=== PATIENT | male | born 1965 | race African-American/Black ===

== ENCOUNTER 2023-09-23 07:19 | Emergency (ER) | payer OTHER, SELFPAY ==
[2023-09-23 07:22] VITALS: BP 142/71; PULSE 86; RESP 16; TEMP 36.1; O2SAT 98; BMI 22.3
--- NOTE | 2023-09-23 07:51 | ED.WOUNDLAC ---
HPI - Wound/Laceration General Chief Complaint: Wound/Laceration Stated Complaint: work injury / cut finger Time Seen by Provider: 09/23/23 07:25 Source: patient Mode of arrival: ambulatory Limitations: no limitations History of Present Illness HPI narrative: Cut left 2nd digit volar surface on sharp machinery at work, he is not up to date with his tetanous Onset (ago): minute(s) Related Data Allergies Allergy/AdvReac Type Severity Reaction Status Date / Time No Known Allergies Allergy Verified 09/23/23 07:22 Review of Systems Review of Systems: Yes all other systems are reviewed and are negative Neurologic: Denies Sensory deficit (Neuro) [facility] Social History Social History Advance Directives: No Physical Exam Vital Signs: Vital Signs: Last Vital Signs Temp 97 F 09/23/23 07:22 Pulse 86 09/23/23 07:22 Resp 16 09/23/23 07:22 BP 142/71 H 09/23/23 07:22 Pulse Ox 98 09/23/23 07:22 O2 Del Method Room Air 09/23/23 07:22 BMI result Body Mass Index 22.3 Const: General: healthy appearing Nutritional Appearance: average body habitus Orientation/consciousness: oriented to person and patient oriented x3 Limitations: no limitations HEENT: Head: Yes normal to inspection Ears: external ears normal General nose exam: Normal external nose present Mouth: Normal oral and palatal mucosa present and oropharynx normal Throat: Yes posterior oropharynx normal Eyes: General: appearance normal, both eyes and all related structures Neck: Other: supple Neck: Yes normal visual inspection Skin: Other: 2nd digit volar surface 4cm laceration distal to PIP not over the joint Neuro: General: oriented to person and patient oriented x3 Cranial nerves: Yes CN's II-XII intact bilaterally Motor exam (neuro): 5/5 motor strength present throughout Sensory Exam: No Sensory deficit (Neuro) Extrem: General: Yes normal to inspection Psych: Appearance: grossly normal Course Reevaluation(s) Reevaluation #1: patient tolerated procedure well Time: 08:41 Medical Decision Making Differential Diagnosis Differential Diagnoses: The differential diagnosis associated with the presentation includes (finger laceration, extensor tendon laceration) Tests considered The following testing was considered but not selected: xray of finger not done because the laceration was not to bone and the force of injury did not warrant xray Prescription Management I considered prescription management with: Antibiotic (clean wound no need for abx) Procedures Procedure Narrative Procedure Narrative: Patient prepped and draped in sterile fashion, 1% lidocaine used for anesthesia, wound irrigated under pressure with saline, closed with 6-0 nylon x 5. Patient tolerated procedure well. Discharge Plan Discharge Clinical Impression: Laceration Patient Disposition: Home, Self-Care Instructions: Care For Your Stitches (ED) Additional Instructions: suture removal 10 days. Follow up with workmans comp prior to returning to work
[2023-09-23] MEDS: Diphth,Pertus(ACell),Tet Adult 0.5 ML SYRINGE IM (08:38)
[2023-09-23] MEDS: Lidocaine HCl 1 % 20 ML VIAL 5 ML INFILTRATI (08:41)
== END 2023-09-23 08:55 | disposition home or self-care (01) ==
PROVIDERS: Emergency Provider Emergency Medicine
DX: S61.211A Laceration without foreign body of left index finger without damage to nail, initial encounter (principal); S60.411A Abrasion of left index finger, initial encounter; W26.9XXA Contact with unspecified sharp object(s), initial encounter; Y93.9 Activity, unspecified; Y99.0 Civilian activity done for income or pay; Y99.9 Unspecified external cause status; Z23 Encounter for immunization
CPT/HCPCS: 12002; 90471; 90715; 99281; 99284

== ENCOUNTER → 2023-10-05 14:27 | Outpatient (BNVA) | payer OTHER, SELFPAY | PROVIDERS: Visit Provider Physician Assistant Medical | DX: S61.211D Laceration without foreign body of left index finger without damage to nail, subsequent encounter (principal); W31.9XXD Contact with unspecified machinery, subsequent encounter | CPT/HCPCS: 99202; 99212 ==